=== PATIENT | female | born 1965 | race African-American/Black ===

== ENCOUNTER 2019-11-20 17:54 | Emergency (ER) | payer OTHER ==
[~2019-11-20] VITALS: Ht 170.2 cm; Wt 86.2 kg
[2019-11-20 18:10] VITALS: BP 130/82
--- NOTE | 2019-11-20 18:10 | NUR ---
ED Nurse Note: PT AMBULATED TO ED D/T LT ARM PAIN/NUMBNESS STARTED AROUND 1600 THIS AFTERNOON. PER PT, A RESIDENT PULLED HER LEFT ARM WHILE SHE WAS HELPING A RESIDENT IN A [employer] WHERE SHE WORKS. STILL ABLE TO MOVE LEFT ARM. NO SWELLING. VSS, ON RA, PLACED ON BED.
--- NOTE | 2019-11-20 18:16 | Emergency Room Report ---
History of Present Illness General Chief Complaint: Pain Source: Patient Present Illness HPI Disclaimer: Please note that this report is being documented using [employer] technology. This can lead to erroneous entry secondary to incorrect interpretation by the dictating instrument. HPI: 54-year-old female with no reported medication presents for evaluation of left arm tingling after an injury. 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 She is right-hand dominant. Complaining of a tingling sensation from her armpit down to her fingertips. Denies any pain in the shoulder, elbow, wrist or hand. Reports full range of motion. Still has sensation but has a subjective feeling of numbness and tingling. Denies any scratches, abrasions, lacerations. There was no other fall or injury reported. PMH: None PSH: Denies Allergies: Penicillin Social Hx: Denies Allergies: Coded Allergies: PENICILLINS (Verified Allergy, Unknown, 11/20/19) TONGUE SWELLING Patient History Last Menstrual Period: MENOPAUSE Now: No Nursing Documentation-PMH Past Medical History: No Stated History Review of Systems All Other Systems: negative except mentioned in HPI Physical Exam Vital Signs Date Time Temp Pulse Resp B/P (MAP) Pulse Ox O2 Delivery O2 Flow Rate FiO2 11/20/19 18:00 97.9 75 17 130/82 (98) 97 Room Air General: Awake and alert, no acute distress HEENT: NC/AT. EOMI. Resp: Normal work of breathing Skin: Intact. No abrasions, laceration or rash over the exposed skin MSK: Normal tone and bulk. Moving all extremities. No obvious deformity. Able to abduct the left upper extremity past 220 degrees. Able to internally and externally rotate. Able to flex and extend. Able to supinate and pronate at the left elbow with intact flexion extension at the elbow as well. Full range of motion of the wrist and all digits. Good pincer strength. 2+ radial pulse. Good perfusion with capillary refill less than 2 seconds. Neuro: Awake and alert. Mentating appropriately. Sensation is intact over the dermatomes of the upper extremities bilaterally. Two-point discrimination intact over the radial and ulnar aspect of all digits on the left hand. Medical Decision Making Diagnostic Impression: Primary Impression: Arm paresthesia, left ER Course 54-year-old female presents for evaluation after a minor left upper extremity injury comes in healing of subjective paresthesias. She is complaining of some paresthesias over the base of thenar eminence and over the left deltoid though objectively has full strength and sensation without evidence of injury. Full range of motion at all major joints and no tenderness over the major muscles of the upper extremities. Capillary refill is brisk, no evidence of vascular or neuro injury at this time. Likely a peripheral nerve irritation from the minor trauma. Do not see indication for emergent labs or imaging at this time. Patient can be discharged to follow-up on an outpatient basis with her PMD and referral to orthopedic surgery as needed. Instructed her not to lift any heavy weights greater than 5 pounds with the left upper extremity until her symptoms are resolved. Discussed reasons to return to the emergency department and the importance of follow-up on an outpatient basis with her PMD and orthopedic surgery if needed. She understands and agrees with this treatment plan. Will discharge home. Last Vital Signs Date Time Temp Pulse Resp B/P (MAP) Pulse Ox O2 Delivery O2 Flow Rate FiO2 11/20/19 18:10 97.9 62 17 130/82 97 Room Air Disposition: HOME, SELF-CARE Condition: Stable Iker Alvarez MD Nov 20, 2019 18:16
[2019-11-20 18:31] VITALS: BP 130/84
--- NOTE | 2019-11-20 18:31 | NUR ---
ER DISCHARGE NOTE: Pt is medically cleared to be discharged per ERMD. Pt is AOx4, VSS, on RA; no signs of acute distress. pt was given dc and prescription instructions, pt was able to verbalize understanding, pt id band removed. pt is able to ambulate with steady gait. pt took all belongings.
== END 2019-11-20 18:31 | disposition home or self-care (01) ==
LOC: EMR 18:30
DX: R20.2 Paresthesia of skin (principal); Z88.0 Allergy status to penicillin
CPT/HCPCS: 99282